=== PATIENT | male | born 1965 | race Caucasian/White ===

== ENCOUNTER → 2017-05-20 | Outpatient (CLI) | payer BC ==
[~2017-05-20] MED LIST: FLOMAX 0.4MG C0.4 MG PO; HYDROMORPHONE2 MG PO; LIPITOR10 MG PO; LORTAB 5/500 501 TAB PO; MACRODANTIN100 MG PO; PHENERGAN 25MG.25 M1 PO
[2017-05-20 10:39] LABS: BUN 15 mg/dL (7-18); GFR (ESTIMATED) 70 ML/MIN (>60)
== END ==
LOC: LAB 07:35
PROVIDERS: Internal Medicine Adolescent Medicine
DX: E78.5 Hyperlipidemia, unspecified (principal); E03.9 Hypothyroidism, unspecified